=== PATIENT | female | born 1950 | race Caucasian/White ===

== ENCOUNTER 2023-09-18 14:49 | Emergency (ER) | payer MEDICARE, SELFPAY ==
[2023-09-18] VITALS (7 sets, daily range): BP systolic 130–172; BP diastolic 61–88; BMI 23.6
--- NOTE | 2023-09-18 15:58 | ED.GENMED ---
History of Present Illness
<Robert Borrero PA-C - Last Filed: 09/18/23 17:46>
General
Chief Complaint: Back Pain
Source: patient
Exam Limitations: none
Time Seen by Provider: 09/18/23 15:33
Travel History
Have you had any contact with someone who has COVID-19?: No
Do you have any symptoms of coronavirus? Fever > 100 degrees, chills, cough, shortness of breath, sore throat, loss of taste or smell, muscle aches, or headache?: No
History of Present Illness
History of Present Illness:
73-year-old female presents complaining of the onset of lower back pain that radiated up into between her shoulder blades into her jaw and left arm. This started around noon. She notes bilateral jaw pain. She notes a flushed sensation with
nausea. No shortness of breath. No leg swelling or calf pain. No other complaints at this time
Phy Exam
<Robert Borrero PA-C - Last Filed: 09/18/23 17:46>
Physical Exam
Physical Exam:
General: Well-appearing female no acute respiratory distress
HEENT: Normocephalic atraumatic
Heart: Regular rate and rhythm no murmurs
Lungs: Clear to auscultation bilaterally no wheezing
Vascular: 2+ radial pulse right wrist. Slightly weaker pulse on the left2+ dorsalis pedis pulse bilateral feet
Neurologic: No facial asymmetry. Alert and oriented good strength to the upper and lower extremities
Skin is warm no rash
Course
<Robert Borrero PA-C - Last Filed: 09/18/23 17:46>
Orders/Labs/Results
Orders:
Orders
09/18/23 15:07
EKG [Electrocardiogram (*1)] Urgent
Reason for Study: Palpitations
09/18/23 15:08
EKG- Treatment ONCE
09/18/23 15:52
Acetaminophen [Tylenol] 1,000 mg PO NOW STA
09/18/23 15:54
Ct Chest/Abd/Pel Angio W/Wo Iv Urgent
Reason For Exam: low back pain
09/18/23 16:03
Complete Blood Count/With Diff Urgent
Comprehensive Metabolic Panel Urgent
Troponin I Urgent
09/18/23 17:17
Diphenhydramine [Benadryl] 50 mg IV NOW STA
Hydrocortisone Sod Succinate [Solu-Cortef] 200 mg IV NOW STA
09/18/23 18:19
Troponin I Urgent
Abnormal Lab Results
09/18/23
16:03
RBC 4.09 L 10^6/uL
(4.20-5.40)
Hct 36.3 L %
(37.0-47.0)
Lymphocytes % 20.0 L %
(20.5-51.1)
Sodium 134 L mmol/L
(135-145)
BUN 21 H mg/dl
(7-17)
09/18/23 16:03
09/18/23 16:03
Vital Signs
Initial and Last Documented VS:
Initial Vital Signs
Temp Pulse Resp BP Pulse Ox
98.0 F 75 16 166/88 99
09/18/23 14:52 09/18/23 14:52 09/18/23 14:52 09/18/23 14:52 09/18/23 14:52
Last Documented Vital Signs
Temp Pulse Resp BP Pulse Ox
98.5 F 75 21 157/77 97
09/18/23 20:30 09/18/23 21:45 09/18/23 21:45 09/18/23 19:00 09/18/23 21:45
<Rosalino Mckeon MD - Last Filed: 09/18/23 17:23>
Orders/Labs/Results
Orders:
Orders
09/18/23 15:07
EKG [Electrocardiogram (*1)] Urgent
Reason for Study: Palpitations
09/18/23 15:08
EKG- Treatment ONCE
09/18/23 15:52
Acetaminophen [Tylenol] 1,000 mg PO NOW STA
09/18/23 15:54
Ct Chest/Abd/Pel Angio W/Wo Iv Urgent
Reason For Exam: low back pain
09/18/23 16:03
Complete Blood Count/With Diff Urgent
Comprehensive Metabolic Panel Urgent
Troponin I Urgent
09/18/23 17:17
Diphenhydramine [Benadryl] 50 mg IV NOW STA
Hydrocortisone Sod Succinate [Solu-Cortef] 200 mg IV NOW STA
09/18/23 18:19
Troponin I Urgent
Abnormal Lab Results
09/18/23
16:03
RBC 4.09 L 10^6/uL
(4.20-5.40)
Hct 36.3 L %
(37.0-47.0)
Lymphocytes % 20.0 L %
(20.5-51.1)
Sodium 134 L mmol/L
(135-145)
BUN 21 H mg/dl
(7-17)
09/18/23 16:03
09/18/23 16:03
Vital Signs
Initial and Last Documented VS:
Initial Vital Signs
Temp Pulse Resp BP Pulse Ox
98.0 F 75 16 166/88 99
09/18/23 14:52 09/18/23 14:52 09/18/23 14:52 09/18/23 14:52 09/18/23 14:52
Last Documented Vital Signs
Temp Pulse Resp BP Pulse Ox
98.5 F 75 21 157/77 97
09/18/23 20:30 09/18/23 21:45 09/18/23 21:45 09/18/23 19:00 09/18/23 21:45
<Stefan Solorzano PA-C - Last Filed: 09/18/23 23:45>
Orders/Labs/Results
Orders:
Orders
09/18/23 15:07
EKG [Electrocardiogram (*1)] Urgent
Reason for Study: Palpitations
09/18/23 15:08
EKG- Treatment ONCE
09/18/23 15:52
Acetaminophen [Tylenol] 1,000 mg PO NOW STA
09/18/23 15:54
Ct Chest/Abd/Pel Angio W/Wo Iv Urgent
Reason For Exam: low back pain
09/18/23 16:03
Complete Blood Count/With Diff Urgent
Comprehensive Metabolic Panel Urgent
Troponin I Urgent
09/18/23 17:17
Diphenhydramine [Benadryl] 50 mg IV NOW STA
Hydrocortisone Sod Succinate [Solu-Cortef] 200 mg IV NOW STA
09/18/23 18:19
Troponin I Urgent
Abnormal Lab Results
09/18/23
16:03
RBC 4.09 L 10^6/uL
(4.20-5.40)
Hct 36.3 L %
(37.0-47.0)
Lymphocytes % 20.0 L %
(20.5-51.1)
Sodium 134 L mmol/L
(135-145)
BUN 21 H mg/dl
(7-17)
09/18/23 16:03
09/18/23 16:03
Vital Signs
Initial and Last Documented VS:
Initial Vital Signs
Temp Pulse Resp BP Pulse Ox
98.0 F 75 16 166/88 99
09/18/23 14:52 09/18/23 14:52 09/18/23 14:52 09/18/23 14:52 09/18/23 14:52
Last Documented Vital Signs
Temp Pulse Resp BP Pulse Ox
98.5 F 75 21 157/77 97
09/18/23 20:30 09/18/23 21:45 09/18/23 21:45 09/18/23 19:00 09/18/23 21:45
<Robert Borrero PA-C - Last Filed: 09/18/23 17:46>
MDM/Problems Addressed
Differential Diagnosis Includes:
Low back pain scapular pain arm pain jaw pain. Consider, dissection, musculoskeletal pain versus cardiac, related. Will obtain EKG troponin labs. CT angio of the chest and abdomen ordered as well to evaluate for dissection
<Stefan Solorzano PA-C - Last Filed: 09/18/23 23:45>
*Critical Care Note
Total Time (30-74mins, 75-104mins- exclusive of procedures): Not Applicable
<Robert Borrero PA-C - Last Filed: 09/18/23 17:46>
Update Note
Update Note:
5:45 PM: While waiting for CT angio patient tells technical director that she may be allergic to IV dye. She has required prednisone and Benadryl prior to any imaging in the past. Will give Solu-Cortef and Benadryl. Repeat troponin pending at 7 PM. Initial
troponin undetectable.
<Stefan Solorzano PA-C - Last Filed: 09/18/23 23:45>
Update Note
Update Note:
5:45 PM: While waiting for CT angio patient tells technical director that she may be allergic to IV dye. She has required prednisone and Benadryl prior to any imaging in the past. Will give Solu-Cortef and Benadryl. Repeat troponin pending at 7 PM. Initial
troponin undetectable.
21:42: Late entry, care was assumed from Lam Borrero PA-C with CT angiogram of the chest abdomen pelvis outstanding. Imaging shows no evidence for vascular abnormality however mesenteric panniculitis was noted. This may explain the patient's
abdominal and back pain but likely has no correlation to her reported jaw pain and left arm pain. 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 Educated on the
typical supportive care for mesenteric panniculitis, no need for antibiotics at this time
ED Attending Note
<Robert Borrero PA-C - Last Filed: 09/18/23 17:46>
-
Portions of this chart may have been created with voice recognition software.� Occasional wrong word or��sound alike� substitutions may have occurred due to the inherent limitations of voice recognition software.
<Rosalino Mckeon MD - Last Filed: 09/18/23 17:23>
ED Attending Note
Patient seen and examined by attending physician: Yes
I performed the substantive portion of visit, reviewed & personally made and approve the management plan that is documented in note by myself or YFN.: Yes
ED Attending Note:
73-year-old female sudden onset of low back pain while standing at around noon. Pain radiated up to her scapular area. Then developed some right jaw pain and left shoulder pain. No chest pain or shortness of breath. Feels much better at this
time still complaining of mild jaw pain however. Symptoms have been continuous throughout the day but improving
GENERAL: Alert and oriented in no apparent distress. Ambulated from the bathroom without difficulty
EYE: Orbits normal.
NECK: Supple
CARDIAC: Regular rate and rhythm without any obvious murmurs. Decreased pulse to the left hand although good color and good capillary refill
LUNGS: Clear breath sounds,normal
ABDOMEN: Soft, without focal tenderness or distention
NEUROLOGICAL: Alert and oriented , grossly non-focal
SKIN: Warm and dry, no rash or lesion, no discoloration, skin intact.
MUSCULOSKELETAL: No edema,no deformity.Good color
PSYCH: Normal and appropriate interaction.
Impression sudden back pain eating radiating up with jaw and arm pain. Patient states she had a normal cardiac cath last February with no significant disease. Calcium score was 0. Nonexertional sudden symptoms. Doubt cardiac but needs a cardiac
rule out done.
With sudden back pain dissection also needs to be ruled out. Does have a slight decreased pulse of the left arm. However patient is clinically very nontoxic and stable. CT angios will be ordered.
Discharge Plan
Departure
Patient Disposition: Home (Routine Discharge)
Date of Disposition: 09/18/23
Time of Disposition: 21:50
Patient with high blood pressure during this ER visit?: No
Discharge Problem:
Mesenteric panniculitis
Instructions: Abdominal Pain, Adult ED
Prescriptions:
No Action
verapamil 120 mg Tablet Extended Release
120 mg PO DAILY
fexofenadine [Nola] 180 mg Tablet
180 mg PO DAILY PRN (Reason: seasonal allergies)
propafenone 300 mg Tablet
300 mg PO TID
cimetidine [Tagamet] 200 mg Tablet
200 mg PO QPM
omeprazole [Prilosec] 20 mg Capsule,Delayed Release(Dr/Ec)
20 mg PO DAILY
gabapentin 100 mg capsule
200 mg PO DAILY
gabapentin 100 mg capsule
100 mg PO QPM
albuterol sulfate [Ventolin HFA] 90 mcg/actuation Hfa Aerosol Inhaler
2 puff INHALATION R Q4 PRN (Reason: sob/wheezing)
clonazepam 0.125 mg tablet,disintegrating
0.25 mg PO HS
Patient Comments:
09/18/2023: last filled 09/05/23, 105 tabs for 30 days from [facility]
calcium citrate-vitamin D3 [Calcium Citrate + D] 315 mg-5 mcg (200 unit) Tablet
1 tab PO DAILY
cholecalciferol (vitamin D3) [Vitamin D3] 50 mcg (2,000 unit) Tablet
50 mcg PO BID
Prolia 60 mg/mL Syringe
60 mg SC [id number]
Glucosamine Chondroitin 550-30-1 mg Capsule
1 cap PO TID
Curcumin
2 tab PO DAILY
Fibro-Care
2 tab PO MEALS
Referrals:
Mau Wilson MD [Family Provider] -
Activity Restrictions/Additional Instructions:
Your pain appears to be caused by a condition known as mesenteric panniculitis. This is a benign inflammatory condition of the fatty tissue that connects your intestines. Pain will typically last anywhere from 5 to 10 days before resolving. You
may take Tylenol as needed for symptoms. If symptoms do not improve within 2 to 3 weeks please follow-up with your primary care physician regarding this abnormality
Interventions
Interventions:
*Risk Screen - Suicide Last Done: 09/18/23 14:52
*General Assessment Last Done: 09/18/23 18:28
*Neglect/Abuse Screening Last Done: 09/18/23 14:52
ED- Fall Risk Assessment Last Done: 09/18/23 18:29
*ED COVID-19 Vaccine History Last Done: 09/18/23 14:52
*Nursing Disposition Last Done: 09/18/23 22:59
ED-Musculoskeletal Assessment Last Done: 09/18/23 19:00
Discharge Date and Time
Discharge Date/Time: 09/18/23 23:00
[2023-09-18 16:10] LABS: % Basophils 0.8 % (0-2); % Immature Granulocytes 0.2 % (0-0.5); % Monocytes 6.9 % (1.7-9.3); % Neutrophils 71.1 % (42.2-75.2); Absolute Basophils 0.1 10^3/uL (0-0.2); Absolute Eosinophils 0.1 10^3/uL (0-0.7); Absolute Lymphocytes 1.7 10^3/uL (1.2-3.4); Absolute Monocytes 0.6 10^3/uL (0.1-0.6); Absolute Neutrophils 5.9 10^3/uL (1.4-6.5); Hematocrit 36.3 % (37.0-47.0); Hemoglobin 12.4 g/dL (12.0-16.0); Mean Corp Hgb Conc. 34.2 g/dL (33.0-37.0); Mean Corpuscular Hgb 30.3 pg (27.0-31.0); Mean Corpuscular Volume 88.8 fL (81.0-99.0); Mean Platelet Volume 9.6 fL (7.4-10.4); Nucleated Red Blood Cells % 0 %; Platelet Count 313 10^3/uL (130-400); Red Blood Cell Count 4.09 10^6/uL (4.20-5.40); Red Cell Dist. Width 13.5 % (11.5-14.5); White Blood Cell Count 8.4 10^3/uL (4.8-10.8)
[2023-09-18] MEDS: TYLENOL 1000 MG PO (16:17)
[2023-09-18 16:24] LABS: ALT (SGPT) 26 U/L (0-35); AST (SGOT) 35 U/L (14-36); Albumin 4.3 g/dl (3.5-5.0); Alkaline Phosphatase 58 U/L (38-126); Blood Urea Nitrogen 21 mg/dl (7-17); Calcium 9.6 mg/dl (8.4-10.2); Carbon Dioxide 28 mmol/L (22-30); Chloride 101 mmol/L (98-107); Glucose 89 mg/dl (70-99); Potassium 4.8 mmol/L (3.5-5.1); Sodium 134 mmol/L (135-145); Total Bilirubin 0.6 mg/dl (0.2-1.3); Total Protein 6.8 g/dl (6.3-8.2); eGFR > 60.00
[2023-09-18 16:36] LABS: Troponin I < 0.012 ng/ml
[2023-09-18] MEDS: BENADRYL 50 MG IV (18:21)
[2023-09-18] MEDS: SOLU-CORTEF 200 MG IV (18:22)
[2023-09-18 18:50] LABS: Troponin I < 0.012 ng/ml
== END 2023-09-18 23:00 | disposition home or self-care (01) ==
LOC: EMR 14:49
PROVIDERS: Physician Assistant; EMERGENCY PHYSICIAN Emergency Medicine; FAMILY PHYSICIAN Internal Medicine
DX: K65.4 Sclerosing mesenteritis (principal); M54.50 Low back pain, unspecified; R68.84 Jaw pain; M79.602 Pain in left arm; M25.512 Pain in left shoulder; R11.0 Nausea; Z88.5 Allergy status to narcotic agent; Z88.8 Allergy status to other drugs, medicaments and biological substances; Z88.6 Allergy status to analgesic agent; Z88.1 Allergy status to other antibiotic agents; Z91.040 Latex allergy status
CPT/HCPCS: 99285; 96374; 96375; 71275; 74174; 80053; 84484; 85025; 93005; Q9967

== ENCOUNTER 2023-12-25 13:32 | Emergency (ER) | payer MEDICARE, SELFPAY ==
[2023-12-25 13:44] VITALS: BP 135/63
[2023-12-25 16:33] VITALS: BMI 26.7
--- NOTE | 2023-12-25 16:34 | ED.SKININJ ---
HPI-Injury
General
Chief Complaint: Skin Problem
Source: patient
Exam Limitations: none
Time Seen by Provider: 12/25/23 16:06
Nursing documentation reviewed up to this point in time: agreed with
Travel History
Have you had any contact with someone who has COVID-19?: No
Do you have any symptoms of coronavirus? Fever > 100 degrees, chills, cough, shortness of breath, sore throat, loss of taste or smell, muscle aches, or headache?: No
History of Present Illness-Injury
Is this injury a work related problem?: No
Is pt an associate of [facility]?: No
Initial Injury comments:
Patient to ED with complaint of redness and swelling to her posterior left calf. States she was seen by her PCP today who requested she come to ED for emergent US to r/o DVT. PCP placed patient on bactrim DS for suspected cellulits. Brought self
to ED for eval. Denies fever/chills. No known history of trauma. No history of DVT.
Past History
Past History
ED Past Medical History: Arrthythmia, Asthma, Cancer (breast) and GERD
ED Past Surgical History: Appendectomy, Brain, Gynecological (hysterectomy) and Other (thoracotomy, left breast lumptectomy, eye surgery)
Social History
Tobacco: Non-smoker
Alcohol: None
Review of Systems
Review of Systems
Allergies reviewed?: Yes
All Other Systems: ROS reviewed and negative except as documented in HPI and ROS
Constitutional: Reports no symptoms
EENT: Reports no symptoms
Respiratory: Reports no symptoms
Cardiac: Reports no symptoms
Musculoskeletal: Reports no symptoms
Skin: Reports other (erythema and swelling to left calf)
Neurological: Reports no symptoms
Psychiatric: Reports no symptoms
Phy Exam
General Physical Exam
General Presentation: well appearing and no apparent distress
General age: appears stated age
General Skin: warm and dry
General Habitus: normal
General Mental: alert
Musculoskeletal Exam
Musculoskeletal Exam: full ROM and neuro vasc intact
Skin Exam
Skin Exam: warm/dry and other (Approx 5cm area of erythema to left calf. Warm to touch, firm consistent with cellulitis. No evidence of abscess formation)
Psychiatric Exam
Psychiatric Exam: normal mood/affect
Course
Orders/Labs/Results
Orders:
Orders
12/25/23 13:50
US Legs, Left [US Periph Venous LOWER Ext LT] Urgent
Comment:
Reason For Exam: pain redness
12/25/23 16:37
Complete Blood Count/With Diff Urgent
Comprehensive Metabolic Panel Urgent
Abnormal Lab Results
12/25/23
16:37
RBC 4.07 L 10^6/uL
(4.20-5.40)
Absolute Monos (auto) 0.8 H 10^3/uL
(0.1-0.6)
Monocytes % 9.4 H %
(1.7-9.3)
Carbon Dioxide 31 H mmol/L
(22-30)
Calcium 10.4 H mg/dl
(8.4-10.2)
12/25/23 16:37
12/25/23 16:37
Vital Signs
Initial and Last Documented VS:
Initial Vital Signs
Temp Pulse Resp BP Pulse Ox
99.0 F 85 16 135/63 98
12/25/23 13:44 12/25/23 13:44 12/25/23 13:44 12/25/23 13:44 12/25/23 13:44
Last Documented Vital Signs
Temp Pulse Resp BP Pulse Ox
99.0 F 85 16 135/63 98
12/25/23 13:44 12/25/23 13:44 12/25/23 13:44 12/25/23 13:44 12/25/23 13:44
*Radiology
Radiology exam reviewed: radiology read reviewed
*Pulse Oximetry
Patient hypoxic: no
*Critical Care Note
Total Time (30-74mins, 75-104mins- exclusive of procedures): Not Applicable
ED Attending Note
-
Portions of this chart may have been created with voice recognition software.� Occasional wrong word or��sound alike� substitutions may have occurred due to the inherent limitations of voice recognition software.
Discharge Plan
Departure
Patient Disposition: Home (Routine Discharge)
Date of Disposition: 12/25/23
Time of Disposition: 18:41
Patient with high blood pressure during this ER visit?: No
Condition: Good
Covid-19: Not Applicable
Discharge Problem:
Cellulitis of leg
Instructions: Cellulitis (Skin Infection), Adult (DC)
Prescriptions:
No Action
verapamil 120 mg Tablet Extended Release
120 mg PO DAILY
fexofenadine [Nola] 180 mg Tablet
180 mg PO DAILY PRN (Reason: seasonal allergies)
propafenone 300 mg Tablet
300 mg PO TID
cimetidine [Tagamet] 200 mg Tablet
200 mg PO QPM
omeprazole [Prilosec] 20 mg Capsule,Delayed Release(Dr/Ec)
20 mg PO DAILY
gabapentin 100 mg capsule
200 mg PO DAILY
gabapentin 100 mg capsule
100 mg PO QPM
albuterol sulfate [Ventolin HFA] 90 mcg/actuation Hfa Aerosol Inhaler
2 puff INHALATION R Q4 PRN (Reason: sob/wheezing)
clonazepam 0.125 mg tablet,disintegrating
0.25 mg PO HS
Patient Comments:
09/18/2023: last filled 09/05/23, 105 tabs for 30 days from [facility]
calcium citrate-vitamin D3 [Calcium Citrate + D] 315 mg-5 mcg (200 unit) Tablet
1 tab PO DAILY
cholecalciferol (vitamin D3) [Vitamin D3] 50 mcg (2,000 unit) Tablet
50 mcg PO BID
Prolia 60 mg/mL Syringe
60 mg SC [id number]
Glucosamine Chondroitin 550-30-1 mg Capsule
1 cap PO TID
Curcumin
2 tab PO DAILY
Fibro-Care
2 tab PO MEALS
Referrals:
Mau Wilson MD [Family Provider] - Follow up in 2-3 days
Activity Restrictions/Additional Instructions:
Return to the emergency department immediately for any changes in/worsening of your symptoms.
Interventions
Interventions:
*Risk Screen - Suicide Last Done: 12/25/23 16:33
*General Assessment Last Done: 12/25/23 16:34
*Neglect/Abuse Screening Last Done: 12/25/23 16:33
ED- Fall Risk Assessment Last Done: 12/25/23 16:33
*ED COVID-19 Vaccine History Last Done: 12/25/23 13:44
*Nursing Disposition Last Done: 12/25/23 18:53
ED-Skin Assessment Last Done: 12/25/23 16:35
Discharge Date and Time
Discharge Date/Time: 12/25/23 18:56
Print Language: NEPALI
[2023-12-25 16:51] LABS: % Basophils 1.2 % (0-2); % Eosinophils 2.7 % (0-6); % Immature Granulocytes 0.2 % (0-0.5); % Lymphocytes 25.1 % (20.5-51.1); % Monocytes 9.4 % (1.7-9.3); % Neutrophils 61.4 % (42.2-75.2); Absolute Basophils 0.1 10^3/uL (0-0.2); Absolute Eosinophils 0.2 10^3/uL (0-0.7); Absolute Monocytes 0.8 10^3/uL (0.1-0.6); Absolute Neutrophils 4.9 10^3/uL (1.4-6.5); Hematocrit 37.3 % (37.0-47.0); Hemoglobin 12.3 g/dL (12.0-16.0); Mean Corpuscular Hgb 30.2 pg (27.0-31.0); Mean Corpuscular Volume 91.6 fL (81.0-99.0); Mean Platelet Volume 9.8 fL (7.4-10.4); Nucleated Red Blood Cells % 0 %; Platelet Count 293 10^3/uL (130-400); Red Blood Cell Count 4.07 10^6/uL (4.20-5.40); Red Cell Dist. Width 13.2 % (11.5-14.5); White Blood Cell Count 8.1 10^3/uL (4.8-10.8)
[2023-12-25 17:08] LABS: ALT (SGPT) 30 U/L (0-35); AST (SGOT) 35 U/L (14-36); Albumin 4.5 g/dl (3.5-5.0); Alkaline Phosphatase 54 U/L (38-126); Blood Urea Nitrogen 17 mg/dl (7-17); Calcium 10.4 mg/dl (8.4-10.2); Carbon Dioxide 31 mmol/L (22-30); Chloride 102 mmol/L (98-107); Estimated Creatinine Clearance 64 ml/min; Glucose 97 mg/dl (70-99); Potassium 4.3 mmol/L (3.5-5.1); Sodium 143 mmol/L (135-145); Total Bilirubin 0.5 mg/dl (0.2-1.3); Total Protein 7.3 g/dl (6.3-8.2); eGFR > 60.00
== END 2023-12-25 18:56 | disposition home or self-care (01) ==
LOC: EMR 13:32
PROVIDERS: Nurse Practitioner; EMERGENCY PHYSICIAN Emergency Medicine; FAMILY PHYSICIAN Internal Medicine
DX: L03.116 Cellulitis of left lower limb (principal); R60.0 Localized edema; J45.909 Unspecified asthma, uncomplicated; K21.9 Gastro-esophageal reflux disease without esophagitis; Z85.3 Personal history of malignant neoplasm of breast; Z88.5 Allergy status to narcotic agent; Z88.8 Allergy status to other drugs, medicaments and biological substances; Z88.6 Allergy status to analgesic agent; Z88.1 Allergy status to other antibiotic agents; Z91.040 Latex allergy status
CPT/HCPCS: 99284; 80053; 85025; 93971

== ENCOUNTER 2025-04-20 09:30 | Emergency (ER) | payer MEDICARE, SELFPAY ==
[2025-04-20 09:37] VITALS: BP 160/91
[2025-04-20 09:53] VITALS: BP 149/74
[2025-04-20 10:06] VITALS: BMI 26.7
[2025-04-20 10:08] VITALS: BP 149/74
--- NOTE | 2025-04-20 10:11 | ED.GENMED ---
History of Present Illness
<ALF Pond - Last Filed: 04/20/25 15:05>
General
Chief Complaint: Chest Pain
Source: patient
Exam Limitations: none
Time Seen by Provider: 04/20/25 09:52
Nursing documentation reviewed up to this point in time: agreed with
History of Present Illness
History of Present Illness:
Patient is a 75-year-old female past medical history of hyperlipidemia valve disorder/mitral valve prolapse celiac disease reflux, that brain aneurysm spontaneous pneumothorax atrial tachycardia cholecystectomy, hysterectomy oophorectomy, right
lobectomy aneurysm repair, cardiac ablation presents to the ER for evaluation. She reports she was awoken suddenly at 6 AM with indigestion. She feels' indigestion' in her upper abdomen and has been burping. She denies feeling pain or burning but
simply describes this as 'indigestion.' She denies any shortness of breath. At 8 AM however she started with severe pain in her right upper arm which resolved when she got here to the ER. At the time she did take her blood pressure and it was
elevated for her. She reports her normal blood pressure is 90/60 but her blood pressure is 138/78 and her heart rate is 128.
Patient is followed by cardiology Dr. Glynn at [facility]. She has a history of high cholesterol however had a normal cardiac catheterization 2 years ago at [place] and has a calcium score of 0.
Patient does not drink or smoke.
Past History
<ALF Pond - Last Filed: 04/20/25 15:05>
Past History
ED Past Medical History: Arrthythmia, Asthma, Cancer (breast) and GERD
ED Past Surgical History: Appendectomy, Brain, Gynecological (hysterectomy) and Other (thoracotomy, left breast lumptectomy, eye surgery)
Social History
Tobacco: Non-smoker
Alcohol: None
Phy Exam
<ALF Pond - Last Filed: 04/20/25 15:05>
General Physical Exam
General Presentation: no apparent distress
General age: appears stated age
General Skin: warm and dry
General Habitus: normal
General Mental: alert
General Hydration: appears well hydrated
Cardiovascular Exam
Cardiovascular Exam: regular rate/rhythm, no murmur and normal peripheral pulses
Pulmonary Exam
Pulmonary Exam: lungs clear and no respiratory distress
Neurological Exam
Neurological Exam: alert and oriented x3
Musculoskeletal Exam
Musculoskeletal Exam: full ROM
Skin Exam
Skin Exam: normal color and warm/dry
Psychiatric Exam
Psychiatric Exam: normal mood/affect
Scores
<ALF Pond - Last Filed: 04/20/25 15:05>
Heart Score for Chest Pain Patients
STEMI patient?: Not applicable
Course
<ALF Pond - Last Filed: 04/20/25 15:05>
Orders/Labs/Results
Orders:
Orders
04/20/25 09:32
EKG [Electrocardiogram (*1)] Urgent
Reason for Study: Chest Pain
EKG- Treatment ONCE
04/20/25 09:51
CXR2 [CR Chest - 2 Views ] Urgent
Comment:
Reason For Exam: SOB with chest pain
04/20/25 10:04
Complete Blood Count/With Diff Urgent
Comprehensive Metabolic Panel Urgent
Lipase Urgent
Comment: ADD ON
Magnesium Urgent
NT-proBNP Urgent
Troponin I Urgent
04/20/25 10:52
Add On- LAB Urgent
Tests Added?: lipase
04/20/25 11:26
Electrocardiogram (*1) Urgent
Reason for Study: Chest Pain
EKG- Treatment ONCE
04/20/25 11:56
DDimer [D-Dimer] Urgent
Troponin I Urgent
Abnormal Lab Results
04/20/25
10:04
BUN 22 H mg/dl
(7-17)
Glucose 121 H mg/dl
(70-99)
Alkaline Phosphatase 28 L U/L
(38-126)
04/20/25 10:04
04/20/25 10:04
Vital Signs
Initial and Last Documented VS:
Initial Vital Signs
Temp Pulse Resp BP Pulse Ox
98.8 F 100 20 160/91 99
04/20/25 09:37 04/20/25 09:37 04/20/25 09:37 04/20/25 09:37 04/20/25 09:37
Last Documented Vital Signs
Temp Pulse Resp BP Pulse Ox
98.5 F 82 14 131/82 96
04/20/25 10:08 04/20/25 13:45 04/20/25 13:45 04/20/25 12:19 04/20/25 13:00
Thermostat Repairer consulted with Physician
Thermostat Repairer consulted with physician?: Yes
Name of Physician Consulted: [email or web address]
<Hernandez Monet, DO - Last Filed: 04/20/25 13:06>
Orders/Labs/Results
Orders:
Orders
04/20/25 09:32
EKG [Electrocardiogram (*1)] Urgent
Reason for Study: Chest Pain
EKG- Treatment ONCE
04/20/25 09:51
CXR2 [CR Chest - 2 Views ] Urgent
Comment:
Reason For Exam: SOB with chest pain
04/20/25 10:04
Complete Blood Count/With Diff Urgent
Comprehensive Metabolic Panel Urgent
Lipase Urgent
Comment: ADD ON
Magnesium Urgent
NT-proBNP Urgent
Troponin I Urgent
04/20/25 10:52
Add On- LAB Urgent
Tests Added?: lipase
04/20/25 11:26
Electrocardiogram (*1) Urgent
Reason for Study: Chest Pain
EKG- Treatment ONCE
04/20/25 11:56
DDimer [D-Dimer] Urgent
Troponin I Urgent
Abnormal Lab Results
04/20/25
10:04
BUN 22 H mg/dl
(7-17)
Glucose 121 H mg/dl
(70-99)
Alkaline Phosphatase 28 L U/L
(38-126)
04/20/25 10:04
04/20/25 10:04
Vital Signs
Initial and Last Documented VS:
Initial Vital Signs
Temp Pulse Resp BP Pulse Ox
98.8 F 100 20 160/91 99
04/20/25 09:37 04/20/25 09:37 04/20/25 09:37 04/20/25 09:37 04/20/25 09:37
Last Documented Vital Signs
Temp Pulse Resp BP Pulse Ox
98.5 F 82 14 131/82 96
04/20/25 10:08 04/20/25 13:45 04/20/25 13:45 04/20/25 12:19 04/20/25 13:00
<ALF Pond - Last Filed: 04/20/25 15:05>
MDM/Problems Addressed
Differential Diagnosis Includes:
Not limited to ACS reflux musculoskeletal pain less likely PE
MDM/Problems Addressed:
Patient is a 75-year-old female was Awoken by indigestion this morning she did have some right arm discomfort which is what prompted her to come to the ER. She presents awake alert no acute distress no acute EKG findings. Patient was monitored
here 2 negative cardiac troponins. No symptoms presently . pt is well appearing. She denies any actual abdominal pain abdomen soft nontender she does have previous cholecystectomy. Her LFTs unremarkable. Patient had 2 cardiac enzymes that were
negative , negative d dimer . Pt has safety professional at [facility]. Pt eval by DR Monet who agrees with assessment and plan for d/c home
Pt stable for d/c home with outpt fu by her [facility] cardioligst.
<ALF Pond - Last Filed: 04/20/25 15:05>
*Radiology
Radiology exam reviewed: radiology read reviewed
*Pulse Oximetry
SaO2: 99
Oxygen Mode of Delivery: Room air
Patient hypoxic: no
*Critical Care Note
Total Time (30-74mins, 75-104mins- exclusive of procedures): Not Applicable
ED Attending Note
<ALF Pond - Last Filed: 04/20/25 15:05>
-
Portions of this chart may have been created with voice recognition software.� Occasional wrong word or��sound alike� substitutions may have occurred due to the inherent limitations of voice recognition software.
<Hernandez Monet DO - Last Filed: 04/20/25 13:06>
ED Attending Note
Patient seen and examined by attending physician: Yes
I performed the substantive portion of visit, reviewed & personally made and approve the management plan that is documented in note by myself or YFN.: Yes
ED Attending Note:
I have seen and evaluated the patient with a [id number] encounter. I have spoken to the advance practicer provider and involved in the medical history, the physical exam, medical decision making.
Evaluation and management service: agree unless noted differently below.
Results interpretation: agree unless noted differently below.
Focused HPI: 75-year-old female presenting with indigestion type pain but was worried because she was also developing right shoulder pain. Patient does acknowledge that she has a cardiovascular history
Physical exam: Sitting bed comfortably. Lungs clear. Heart regular in rhythm. No leg edema
Medical Decision Making: Troponin negative x 2. Chest x-ray clear. D-dimer negative. Discussed likely noncardiac origin. Patient feels comfortable going home and follow-up
Discharge Plan
Departure
Patient Disposition: Home (Routine Discharge)
Date of Disposition: 04/20/25
Time of Disposition: 13:47
Patient with high blood pressure during this ER visit?: Yes
Condition: Fair
Covid-19: Not Applicable
Discharge Problem:
Chest pain
Instructions: Chest Pain NON-DHP Interactive Media Marketing Director Follow Up
Prescriptions:
No Action
verapamil 120 mg Tablet Extended Release
120 mg PO DAILY
fexofenadine [Nola] 180 mg Tablet
180 mg PO DAILY PRN (Reason: seasonal allergies)
propafenone 300 mg Tablet
300 mg PO TID
cimetidine [Tagamet] 200 mg Tablet
200 mg PO QPM
omeprazole [Prilosec] 20 mg Capsule,Delayed Release(Dr/Ec)
20 mg PO DAILY
gabapentin 100 mg capsule
200 mg PO DAILY
gabapentin 100 mg capsule
100 mg PO QPM
albuterol sulfate [Ventolin HFA] 90 mcg/actuation Hfa Aerosol Inhaler
2 puff INHALATION R Q4 PRN (Reason: sob/wheezing)
clonazepam 0.125 mg tablet,disintegrating
0.25 mg PO HS
Patient Comments:
09/18/2023: last filled 09/05/23, 105 tabs for 30 days from [facility]
calcium citrate-vitamin D3 [Calcium Citrate + D] 315 mg-5 mcg (200 unit) Tablet
1 tab PO DAILY
cholecalciferol (vitamin D3) [Vitamin D3] 50 mcg (2,000 unit) Tablet
50 mcg PO BID
Prolia 60 mg/mL Syringe
60 mg SC [id number]
Glucosamine Chondroitin 550-30-1 mg Capsule
1 cap PO TID
Curcumin
2 tab PO DAILY
Fibro-Care
2 tab PO MEALS
Referrals:
Mau Wilson MD [Family Provider]
Activity Restrictions/Additional Instructions:
As discussed please follow-up with your safety professional for reevaluation of symptoms. Please call today to make an appointment as soon as possible. Return if any worsening of symptoms
Interventions
Interventions:
*Risk Screen - Suicide Last Done: 04/20/25 09:37
*General Assessment Last Done: 04/20/25 10:08
*Neglect/Abuse Screening Last Done: 04/20/25 09:37
*ED- Fall Risk Assessment Last Done: 04/20/25 10:08
*ED COVID-19 Vaccine History Last Done: 04/20/25 09:37
*ED Influenza Vaccine History Last Done: 04/20/25 09:37
*Nursing Disposition Last Done: 04/20/25 13:58
ED- Cardiac Assessment Last Done: 04/20/25 10:08
Discharge Date and Time
Discharge Date/Time: 04/20/25 14:01
Print Language: VIETNAMESE
[2025-04-20 10:13] LABS: Hematocrit 39.4 % (37.0-47.0); Hemoglobin 13.0 g/dL (12.0-16.0); Mean Corp Hgb Conc. 33.0 g/dL (33.0-37.0); Mean Corpuscular Volume 91.4 fL (81.0-99.0); Nucleated Red Blood Cells % 0 %; Platelet Count 304 10^3/uL (130-400); Red Cell Dist. Width 14.0 % (11.5-14.5)
[2025-04-20 10:29] LABS: ALT (SGPT) 20 U/L (0-35); AST (SGOT) 26 U/L (14-36); Albumin 4.3 g/dl (3.5-5.0); Alkaline Phosphatase 28 U/L (38-126); Blood Urea Nitrogen 22 mg/dl (7-17); Calcium 9.4 mg/dl (8.4-10.2); Carbon Dioxide 25 mmol/L (22-30); Chloride 106 mmol/L (98-107); Estimated Creatinine Clearance 54 ml/min; Glucose 121 mg/dl (70-99); Magnesium 2.0 mg/dl (1.6-2.3); Potassium 4.5 mmol/L (3.5-5.1); Sodium 139 mmol/L (135-145); Total Protein 6.6 g/dl (6.3-8.2); eGFR > 60.00
[2025-04-20 10:40] LABS: Troponin I < 0.012 ng/ml
[2025-04-20 10:41] VITALS: BP 122/64
[2025-04-20 11:22] LABS: Lipase 101 U/L (23-300)
[2025-04-20 12:19] VITALS: BP 131/82
[2025-04-20 12:21] LABS: D-Dimer 0.42 ug/mlFEU (0.00-0.50)
[2025-04-20 12:32] LABS: Troponin I < 0.012 ng/ml
== END 2025-04-20 14:01 | disposition home or self-care (01) ==
LOC: EMR 09:30
PROVIDERS: Nurse Practitioner; EMERGENCY PHYSICIAN Student in an Organized Health Care Education/Training Program; FAMILY PHYSICIAN Internal Medicine
DX: R07.9 Chest pain, unspecified (principal); M25.511 Pain in right shoulder; E78.00 Pure hypercholesterolemia, unspecified; J45.909 Unspecified asthma, uncomplicated; K21.9 Gastro-esophageal reflux disease without esophagitis; Z85.3 Personal history of malignant neoplasm of breast; Z90.49 Acquired absence of other specified parts of digestive tract; Z90.710 Acquired absence of both cervix and uterus
CPT/HCPCS: 99285; 71046; 80053; 83690; 83735; 83880; 84484; 85025; 85379; 93005